=== PATIENT | male | born 1960 | race Caucasian/White ===

== ENCOUNTER → 2018-02-09 12:50 | Outpatient (CLI) | payer OTHER, SELFPAY ==
--- NOTE | 2018-02-09 | DI.CT.S_ITS ---
PROCEDURE: CT CHEST ABD PEL W CON INDICATIONS: ADENOCARCINOMA IN TUBULAR ADENOMA. Per patient, a positive polyp was found during recent colonoscopy. TECHNIQUE: After the administration of oral and intravenous contrast, 5 mm thick sections acquired from the lung apices to the symphysis. 5 mm coronal and sagittal reformats were performed, with additional 7 mm coronal MIP reformats through the lungs. For radiation dose reduction, the following was used: automated exposure control, adjustment of mA and/or kV according to patient size. COMPARISON: None. FINDINGS: Image quality: Excellent. CHEST: Lungs and pleura: There is a 6 mm noncalcified pulmonary nodule in the right lower lobe on axial image 46 of series 3. Subcentimeter triangular nodules along the right major fissure on axial image 43 of series 3 are morphologically consistent with izabella-fissural lymph nodes. No pleural effusions or pneumothorax. Central and peripheral airways appear patent and normal in caliber. Mediastinum: Heart size is normal. No pericardial effusion. There are moderate coronary artery calcifications. No mediastinal or hilar adenopathy by size criteria. Thoracic aorta and central pulmonary arteries are normal in size. Esophagus is normal in caliber. No hiatal hernia. Chest wall: No axillary or supraclavicular adenopathy by size criteria. Thyroid gland is unremarkable.. ABDOMEN: Solid organs: Liver is normal in size and enhancement. Gallbladder is unremarkable. Biliary system is non dilated. Pancreas enhances normally. Spleen is normal in size and enhancement. No adrenal nodules. Kidneys demonstrate normal size and enhancement, without hydronephrosis. Peritoneum and bowel: There is mild rectal wall thickening. A metallic clip is identified intraluminally within the sigmoid colon at the presumed site of reported polyp removal. There are no adjacent pelvic lymph nodes that appear enlarged. Nodes and vessels: No retroperitoneal or mesenteric adenopathy by size criteria. Aorta and inferior vena cava are normal in size. Miscellaneous: No ventral hernias. PELVIS: Genitourinary: Bladder wall thickness is normal. Miscellaneous: There are bilateral fat-containing indirect inguinal hernias. Bones: There are severe multilevel degenerative changes of the thoracic and lumbar spine, worst at L2-L3. There are bilateral L5 pars defects resulting in 1.4 cm of anterolisthesis of L5 on S1. IMPRESSION: #1. Intraluminal metallic clip within the sigmoid colon, presumably at the site of reported polyp removal. No pelvic or mesenteric lymphadenopathy. #2. 6 mm noncalcified pulmonary nodule in the right lower lobe is indeterminate. Recommend follow up CT in 6-12 months for reevaluation. #3. Severe multilevel degenerative changes of the lumbar spine with bilateral L5 pars defects resulting in up to 1.4 cm of anterolisthesis of L5 on S1. Dictated by: Prabhakar Crowley M.D. on 02/09/2018 at 15:45 Approved by: Prabhakar Crowley M.D. on 02/09/2018 at 16:01
[2018-02-09 16:48] LABS: Carcinoembryonic Antigen 2.7 ng/mL (0.1-3.0)
== END ==
PROVIDERS: Family Provider Family Medicine; PCP Family Medicine; Visit Provider Internal Medicine Gastroenterology
DX: C18.9 Malignant neoplasm of colon, unspecified (principal); R91.1 Solitary pulmonary nodule; M51.36 Other intervertebral disc degeneration, lumbar region
CPT/HCPCS: 36415; 71260; 74177; 82378; Q9967

== ENCOUNTER → 2021-09-04 12:13 | Outpatient (CLI) | payer MEDICARE, SELFPAY ==
--- NOTE | 2021-09-04 | DI.CT.S_ITS ---
PROCEDURE: CT ABDOMEN PELVIS W CON INDICATIONS: Left lower quadrant pain TECHNIQUE: After the administration of oral and IV contrast, axial sections were acquired from the lung bases to the pubic symphysis. Coronal and sagittal reformats were performed. For radiation dose reduction, the following was used: automated exposure control, adjustment of mA and/or kV according to patient size. COMPARISON: [facility], CT, CT ABDOMEN PELVIS WITH CONTRAST, 04/04/2018, 21:12. FINDINGS: Image quality: Excellent. Lung bases: Unremarkable. No hiatal hernia. Heart: Mild cardiomegaly. ABDOMEN: Liver: Mild liver hypodensities suggestive of steatosis. There are two areas of irregular hypodensity in segment IV not previously present, but somewhat nonspecific. Gallbladder: Decompressed. Biliary ducts: Nondilated. Pancreas: Normal. Spleen: Normal size. Adrenal Glands: No nodules. Kidneys and Ureters: No hydronephrosis but mild to moderate left hydroureter to the level of the urinary bladder. No ureteral calcifications were seen. Stomach and Bowel: Normal stomach and small bowel loops. There is a bowel anastomosis in the right lower quadrant. The colon contains a moderate amount of stool. The appendix is normal. There is a colorectal anastomosis present. Peritoneum: No abnormal intraperitoneal fluid. No free air. Ventral Wall: There is a tiny right anterior abdominal wall Arteaga's hernia containing loop of small bowel. This is a prior stoma site and there is trace subcutaneous inflammation overlying. Abdominal Nodes: There are several small periaortic lymph nodes which are slightly less prominent compared to the prior study Vessels: Aorta and inferior vena cava are normal in size. PELVIS: Pelvic Organs: Mild prostatomegaly. Bladder: No urinary bladder calcifications. Pelvic Nodes: No bulky adenopathy. Miscellaneous: Tiny fat containing left inguinal hernia, stable. Bones: Grade 2 spondylosis at L5-S1 due to pars defects. Chronic lower thoracic compression fracture and significant endplate spurring in the lumbar spine. IMPRESSION: 1. No acute process. 2. Left hydroureter without ureteral calcifications may be physiologic or evidence of recently passed calculus. No bladder calculi. 3. There are two indistinct areas of hypodensity in the left hepatic lobe not present previously which are nonspecific. Given patient's history of primary malignancy, further evaluation with contrast-enhanced MRI is recommended. 4. Tiny nonobstructing Arteaga's hernia in the area of right lower quadrant stoma closure. Dictated by: Kari Jaimes M.D. on 09/04/2021 at 16:23 Approved by: Kari Jaimes M.D. on 09/04/2021 at 16:36
== END ==
PROVIDERS: Family Provider Family Medicine; PCP Family Medicine; Referring Provider Family Medicine; Visit Provider Family Medicine
DX: R10.32 Left lower quadrant pain (principal); N13.4 Hydroureter; Z85.048 Personal history of other malignant neoplasm of rectum, rectosigmoid junction, and anus
CPT/HCPCS: 74177

== ENCOUNTER → 2022-01-25 12:49 | Outpatient (CLI) | payer MEDICARE, SELFPAY ==
--- NOTE | 2022-01-25 | DI.CT.S_ITS ---
PROCEDURE: CT CHEST WO CON INDICATIONS: MULTIPLE LUNG NODULES/COUGH TECHNIQUE: Noncontrast 2.0-2.5 mm thick sections acquired from the pulmonary apices to the posterior costophrenic angles. 7 mm thick axial MIP and 5 mm coronal and sagittal reformats were then acquired. A low radiation dose technique was utilized. COMPARISON: [facility], CT, CT CHEST WITH CONTRAST, 08/19/2018, 13:27. FINDINGS: Image quality: Diagnostic, given the low radiation dose technique. Lungs and pleura: 2 subcentimeter inter fissural pulmonary nodules are unchanged from the CT dated August 19, 2018 (series 3/image 63). No other pulmonary nodules. No acute airspace opacities. No pleural effusion or pneumothorax. Mediastinum: Heart size is normal. No pericardial effusion. No mediastinal adenopathy by size criteria. Thoracic aorta and central pulmonary arteries are normal in size. Esophagus is normal in caliber. No hiatal hernia. Bones and chest wall: No suspicious bony lesions. Stable compression deformity is redemonstrated at T11. No new vertebral body compression fractures. No axillary or supraclavicular adenopathy by size criteria. Thyroid gland is unremarkable . Abdomen: Visualized upper abdomen solid organs and bowel loops appear normal in the absence of contrast. IMPRESSION: 1. No suspicious pulmonary nodules. Stable interfissural nodules from 2019. No acute pulmonary findings. Fleischner Society criteria for SOLID lung nodule followup. Nodule size (mm)Low-risk patientHigh-risk patient<6 (single or multiple)No routine followup.Optional CT at 12 months. 6-8 (single or multiple)CT at 6-12 months, then optional CT at 18-24 mo.CT at 6-12 months, then CT at 18-24 months. >8 (single)CT at 3 months, PET-CT, or biopsy. Same as for low-risk pts. >8 (multiple)CT at 3-6 months, then optional CT at 18-24 mo.CT at 3-6 months, then CT at 18-24 months. Fleischner Society criteria for SUB-SOLID lung nodule followup. Solitary pure ground-glass nodules<6 mm (ground glass or part solid)No followup needed. 6 mm or larger (ground glass)CT at 6-12 months to confirm persistence, then CT every 2 years until 5 years.6 mm or larger (part solid)CT at 3-6 months to confirm persistence, then annual CT until 5 years if unchanged and solid component remains <6 mm. Multiple sub-solid nodules<6 mmCT at 3-6 months, then CT consider at 2 & 4 years for high risk patients. [address] at 3-6 months. Subsequent management based on most suspicious lesions. Recommendations do not apply to lung cancer screening, patients with immunosuppression, or patients with known primary cancer. Dictated by: Reena Gallardo M.D. on 01/25/2022 at 15:57 Approved by: Reena Gallardo M.D. on 01/25/2022 at 16:01
== END ==
PROVIDERS: Family Provider Family Medicine; PCP Nurse Practitioner Family; Referring Provider Nurse Practitioner Family; Visit Provider Nurse Practitioner Family
DX: R91.8 Other nonspecific abnormal finding of lung field (principal); R05.9 Cough, unspecified
CPT/HCPCS: 71250